=== PATIENT | male | born 1990 | race Two or more races ===

== ENCOUNTER 2017-07-14 13:06 | Emergency (ER) | payer SELFPAY ==
[~2017-07-14] VITALS: Ht 172.7 cm; Wt 70.3 kg
[2017-07-14] MEDS ORDERED: diphenhdrAMINE HCL 50 MG/1 ML VL ONE (13:19)
[2017-07-14] MEDS ORDERED: LORazepam 2MG/ML-1ML VIAL ONE (13:19)
[2017-07-14] MEDS ORDERED: diphenhdrAMINE HCL 50 MG/1 ML VL IV ONE (13:30)
[2017-07-14] MEDS ORDERED: LORazepam 2MG/ML-1ML VIAL IV ONE (13:30)
[2017-07-14] MEDS ORDERED: SODIUM CHLORIDE 0.9% 1,000 ML IV ONE ×3 (13:30→14:46)
[2017-07-14 16:09] VITALS: BP 152/93
== END 2017-07-14 17:07 | disposition home or self-care (01) ==
LOC: ER 13:06
DX: F19.920 Other psychoactive substance use, unspecified with intoxication, uncomplicated (principal)
CPT/HCPCS: 96374; 96375; 99284; J1200; J2060; J7030; 93005